=== PATIENT | male | born 1965 | race African-American/Black ===

== ENCOUNTER 2017-12-26 11:51 | Inpatient (IN) | payer OTHER ==
[2017-12-26 13:42] VITALS: BMI 28.0
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
[2017-12-26] MEDS ORDERED: chlordiazePOXIDE HCL 25 MG CAPSULE PO PRN (14:28)
[2017-12-26] MEDS ORDERED: LOPERAMIDE HCL 2 MG CAPSULE PO PRN (14:28)
[2017-12-26] MEDS ORDERED: MAGNESIUM CITRATE 300 ML BOTTLE PO PRN (14:28)
[2017-12-26] MEDS ORDERED: MENTHOL/PHENOL 1 EACH UD MM PRN (14:28)
[2017-12-26] MEDS ORDERED: guaiFENesin/D-METHORPHAN HB 10 ML UNIT-DOSE CUPS PO PRN (14:28)
[2017-12-26] MEDS ORDERED: P-EPHED 60MG/TRIPROLIDI 2.5MG TABLET PO PRN (14:28)
[2017-12-26] MEDS ORDERED: MAG HYDROX/AL HYDROX/SIMETH 30 ML UNIT-DOSE CUP PO PRN (14:28)
[2017-12-26] MEDS ORDERED: ACETAMINOPHEN 325 MG TABLET (FP) PO PRN (14:28)
[2017-12-26] MEDS ORDERED: MAGNESIUM HYDROX 2400MG/30ML ORAL SUSPENSION 30 ML CUP PO PRN (14:28)
[2017-12-26] MEDS ORDERED: METHADONE HCL 10 MG TABLET (FOR DETOX USE ONLY) PO ONE ×2 (15:30→23:00)
--- NOTE | 2017-12-26 17:21 | PN ---
S Progress Note Note: Psychiatric Nurse Practitioner: [employer] approached patient for a psychiatric consultation. Pt. refused. Stated, " i don't need a psych evaluation. I'm good. thanks."
[2017-12-26] MEDS: HYDROCHLOROTHIAZIDE 25 MG TABLET (FP) PO SCH (17:42)
[2017-12-26] MEDS ORDERED: PETROLATUM, WHITE 30 GM TUBE TP SCH (18:00)
[2017-12-26] MEDS: RANITIDINE HCL 150 MG TABLET (FP) PO SCH (22:27)
[2017-12-26] MEDS: CLINDAMYCIN HCL 150 MG CAPSULE (FP) PO SCH ×2 (22:28)
[2017-12-26] MEDS: chlordiazePOXIDE HCL 25 MG CAPSULE PO SCH (22:28)
[2017-12-26] MEDS: THIAMINE HCL 100 MG TABLET (FP) PO SCH (22:30)
[2017-12-26 23:49] LABS: URINE APPEARANCE SLCLOUDY; URINE BILIRUBIN NEGATIVE (NEGATIVE); URINE BLOOD NEGATIVE (NEGATIVE); URINE COLOR AMBER; URINE GLUCOSE (UA) 1+ (NEGATIVE); URINE KETONE 1+ (NEGATIVE); URINE LEUK ESTERASE NEGATIVE (NEGATIVE); URINE NITRITE NEGATIVE (NEGATIVE); URINE UROBILINOGEN 4.0 E.U/dl mg/dL (0.2-1.0)
[2017-12-26 23:50] LABS: URINE PROTEIN 1+ (NEGATIVE)
[2017-12-26 23:52] LABS: CALCIUM OXALATE CRYSTALS RARE /hpf (NONE SEEN); EPI CELLS RARE /HPF (FEW); URINE MUCUS MANY
[2017-12-27] MEDS: chlordiazePOXIDE HCL 25 MG CAPSULE PO SCH ×4 (05:29→22:43)
[2017-12-27] MEDS: CLINDAMYCIN HCL 150 MG CAPSULE (FP) PO SCH ×3 (05:30→22:43)
[2017-12-27] MEDS ORDERED: METHADONE HCL 10 MG TABLET (FOR DETOX USE ONLY) PO SCH (10:00)
[2017-12-27] MEDS: HYDROCHLOROTHIAZIDE 25 MG TABLET (FP) PO SCH (10:13)
[2017-12-27] MEDS: PRENATAL VITAMINS W/ FOLIC ACID TABLET (FP) PO SCH (10:13)
[2017-12-27] MEDS: RANITIDINE HCL 150 MG TABLET (FP) PO SCH ×2 (10:13→22:43)
[2017-12-27] MEDS: ASPIRIN COATED 81 MG TABLET.EC PO SCH (10:13)
[2017-12-27] MEDS: VITAMINS A AND D TOPICAL OINTMENT 60 GM TUBE TP SCH (10:15)
[2017-12-27 10:21] LABS: HEMATOCRIT 50.2 % (35.4-49); HEMOGLOBIN 16.5 GM/dL (11.7-16.9); MCH 32.7 pg (25.7-33.7); MCHC 32.9 g/dl (32.0-35.9); MEAN CELL VOLUME 99.5 fl (80-96); MEAN PLT VOLUME 9.2 fl (7.5-11.1); RBC 5.04 M/mm3 (4.00-5.60); RDW 13.5 % (11.9-15.9)
[2017-12-27] MEDS ORDERED: BACITRACIN 0.9 GM PACKET TP ONE (10:21)
--- NOTE | 2017-12-27 10:28 | PN ---
[facility] CIWA - CIWA Score Nausea/Vomitin-Mild Nausea/No Vomiting Muscle Tremors: 4-Moderate,w/Arms Extend Anxiety: 4-Mod. Anxious/Guarded Agitation: 4-Moderately Restless Paroxysmal Sweats: 1-Minimal Palms Moist Orientation: 0-Oriented Tacttile Disturbances: 0-None Auditory Disturbances: 0-None Visual Disturbances: 0-None Headache: 0-None Present CIWA-Ar Total Score: 14 S COWS - Scale Resting Pulse: 0= [place] 80 or Below Sweatin= Chills/Flushing Restless Observation: 3= Extraneous Movement Pupil Size: 0= Normal to Room Light Bone or Joint Aches: 2= Severe Diffuse Aches Runny Nose/ Eye Tearin= Runny Nose/Eyes GI Upset > 30mins: 2= Nausea/Diarrhea Tremor Observation of Outstretched Hands: 2= Slight Tremor Visible Yawning Observation: 0= None Anxiety or Irritability: 2=Irritable/Anxious Goose Flesh Skin: 0=Smooth Skin COWS Score: 14 [facility] Progress Note (SOAP) Subjective: joint aches tremor anxiety sweat irritable agitation Objective: 12/27/17 10:26 Vital Signs Temperature 96.4 F L 12/27/17 06:00 Pulse Rate 61 12/27/17 06:00 Respiratory Rate 18 12/27/17 06:00 Blood Pressure 141/91 12/27/17 06:00 O2 Sat by Pulse Oximetry (%) Laboratory Last Values WBC 5.0 K/mm3 (4.0-10.0) D 12/27/17 06:00 RBC 5.04 M/mm3 (4.00-5.60) 12/27/17 06:00 Hgb 16.5 GM/dL (11.7-16.9) 12/27/17 06:00 Hct 50.2 % (35.4-49) H 12/27/17 06:00 MCV 99.5 fl (80-96) H 12/27/17 06:00 MCH 32.7 pg (25.7-33.7) 12/27/17 06:00 MCHC 32.9 g/dl (32.0-35.9) 12/27/17 06:00 RDW 13.5 % (11.9-15.9) 12/27/17 06:00 MPV 9.2 fl (7.5-11.1) 12/27/17 06:00 Urine Color Ilsa 12/26/17 23:25 Urine Appearance Slcloudy 12/26/17 23:25 Urine pH 6.0 (5.0-8.0) 12/26/17 23:25 Ur Specific [place] 1.029 (1.001-1.035) 12/26/17 23:25 Urine Protein 1+ (NEGATIVE) H 12/26/17 23:25 Urine Glucose (UA) 1+ (NEGATIVE) H 12/26/17 23:25 Urine Ketones 1+ (NEGATIVE) H 12/26/17 23:25 Urine Blood Negative (NEGATIVE) 12/26/17 23:25 Urine Nitrite Negative (NEGATIVE) 12/26/17 23:25 Urine Bilirubin Negative (NEGATIVE) 12/26/17 23:25 Urine Urobilinogen 4.0 e.u/dl mg/dL (0.2-1.0) 12/26/17 23:25 Ur Leukocyte Esterase Negative (NEGATIVE) 12/26/17 23:25 Urine WBC (Auto) 3 /hpf (3-5) 12/26/17 23:25 Urine RBC (Auto) 3 /hpf (0-3) 12/26/17 23:25 Ur Epithelial Cells Rare /HPF (FEW) 12/26/17 23:25 Calcium Oxalate Crystal Rare /hpf (NONE SEEN) 12/26/17 23:25 Urine Mucus Many 12/26/17 23:25 lab noted Assessment: 12/27/17 10:27 withdrawal sx Plan: continue detox
[2017-12-27 10:35] LABS: ALBUMIN 3.9 g/dl (3.4-5.0); ANION GAP 6 (8-16); BILIRUBIN,TOTAL 0.8 mg/dL (0.2-1.0); BLOOD UREA NITROGEN 20 mg/dL (7-18); CALCIUM 8.6 mg/dL (8.5-10.1); CHLORIDE 108 mmol/L (98-107); CO2 29 mmol/L (21-32); CREATININE 0.9 mg/dL (0.7-1.3); GLUCOSE,RANDOM 88 mg/dL (74-106); SGOT/AST 170 U/L (15-37); SGPT/ALT 104 U/L (12-78); SODIUM 143 mmol/L (136-145); TOT PROT 6.9 g/dl (6.4-8.2)
[2017-12-27 10:36] LABS: ALK PHOS 65 U/L (45-117)
--- NOTE | 2017-12-27 11:05 | CONSULT ---
[facility] Psychiatric Consult - Data Date of interview: 12/27/17 Admission source: [facility] Identifying data: This is 52 years old male with unknown psychiatric hospitalization hbistory, intoxicated with Alcoho, Opiopids and Cocaine Substance Abuse History: - Smoking Cessation. Smoking history: Former smoker. Have you smoked in the past 12 months: No. If you are a former smoker, when did you quit?: 2 YRS AGO. Hx Chewing Tobacco Use: No. Initiated information on smoking cessation: No. - Substance & Tx. History. Hx Alcohol Use: Yes. Hx Substance Use: Yes. Substance Use Type: Alcohol, Cocaine, Opiates. Hx Substance Use Treatment: Yes (2012). - Substances Abused. Alcohol. Route: Oral. Frequency: Daily. Oxycontin. Route: Oral. Frequency: Daily Medical History: GERD, HTN Psychiatric History: Denies, as per computer history of depression. Patient is not cooperative, minimizing past psychiatric history Physical/Sexual Abuse/Trauma History: Denies Additional Comment: Observation. Detox Unit Care Protocol Mental Status Exam - Mental Status Exam Alert and Oriented to: Person Cognitive Function: Fair Patient Appearance: Unkempt Mood: Angry, Anxious Affect: Flat Patient Behavior: Guarded Speech Pattern: Appropriate Voice Loudness: Mildly Loud Thought Process: Goal Oriented Thought Disorder: Being Controlled Hallucinations: Denies Suicidal Ideation: Denies Homicidal Ideation: Denies Insight/Judgement: Fair Sleep: Difficulty falling asleep Appetite: Fair Muscle strength/Tone: Normal Gait/Station: Normal Additional Comments: Observation. Detox Unit Care Protocol Psychiatric Findings - Problem List ([place] 1, 2,3) (1) Opioid dependence with withdrawal Current Visit: Yes Status: Acute (2) Depression (emotion) Current Visit: Yes Status: Suspected Qualifiers: Depression Type: dysthymia Qualified Code(s): F34.1 - Dysthymic disorder (3) Alcohol dependence Current Visit: No Status: Acute (4) Cocaine dependence Current Visit: No Status: Acute (5) Opioid dependence Current Visit: No Status: Acute (6) Sedative dependence Current Visit: No Status: Acute (7) Alcohol abuse Current Visit: Yes Status: Acute (8) Cocaine abuse Current Visit: Yes Status: Acute - Initial Treatment Plan Initial Treatment Plan: Observation. Detox Unit Care Protocol
--- NOTE | 2017-12-27 11:05 | EKG ---
Test Reason : Blood Pressure : / mmHG Vent. Rate : 084 BPM Atrial Rate : 084 BPM P-R Int : 150 ms QRS Dur : 100 ms QT Int : 354 ms P-R-T Axes : 078 065 050 degrees QTc Int : 418 ms NORMAL SINUS RHYTHM POSSIBLE LEFT ATRIAL ENLARGEMENT BORDERLINE ECG NO PREVIOUS ECGS AVAILABLE Confirmed by TIMOTHY REAVES, MADIE ([id number]) on 12/27/2017 11:05:29 AM Referred By: Confirmed By:MADIE AGUIRRE MD
[2017-12-27] MEDS ORDERED: FLU VACCINE QUAD 60 MCG/0.5 ML (MDV 17-18) IM ONE (12:00)
[2017-12-27] MEDS: THIAMINE HCL 100 MG TABLET (FP) PO SCH (22:43)
[2017-12-28] MEDS: CLINDAMYCIN HCL 150 MG CAPSULE (FP) PO SCH ×3 (05:21→22:39)
[2017-12-28] MEDS: chlordiazePOXIDE HCL 25 MG CAPSULE PO SCH ×3 (05:21→17:30)
[2017-12-28] MEDS: BACITRACIN 0.9 GM PACKET TP SCH (10:22)
[2017-12-28] MEDS: HYDROCHLOROTHIAZIDE 25 MG TABLET (FP) PO SCH (10:23)
[2017-12-28] MEDS: PRENATAL VITAMINS W/ FOLIC ACID TABLET (FP) PO SCH (10:23)
[2017-12-28] MEDS: ASPIRIN COATED 81 MG TABLET.EC PO SCH (10:23)
[2017-12-28] MEDS: VITAMINS A AND D TOPICAL OINTMENT 60 GM TUBE TP SCH (10:23)
[2017-12-28] MEDS: RANITIDINE HCL 150 MG TABLET (FP) PO SCH ×2 (10:24→22:39)
[2017-12-28] MEDS: METHADONE HCL 5 MG TABLET (FOR DETOX USE ONLY) PO SCH (10:25)
--- NOTE | 2017-12-28 13:21 | PN ---
S CIWA - CIWA Score Nausea/Vomitin Muscle Tremors: 3 Anxiety: 3 Agitation: 3 Paroxysmal Sweats: 1-Minimal Palms Moist Orientation: 0-Oriented Tacttile Disturbances: 1-Very Mild Itch/Numbness Auditory Disturbances: 1-Very Mild Visual Disturbances: 0-None Headache: 2-Mild CIWA-Ar Total Score: 17 [facility] COWS - Scale Resting Pulse: 0= [place] 80 or Below Sweatin= Chills/Flushing Restless Observation: 3= Extraneous Movement Pupil Size: 1= Pupils >than Normal Bone or Joint Aches: 2= Severe Diffuse Aches Runny Nose/ Eye Tearin= Runny Nose/Eyes GI Upset > 30mins: 2= Nausea/Diarrhea Tremor Observation of Outstretched Hands: 2= Slight Tremor Visible Yawning Observation: 1= 1-2x During Session Anxiety or Irritability: 2=Irritable/Anxious Goose Flesh Skin: 0=Smooth Skin COWS Score: 16 S Progress Note (SOAP) Subjective: ALERT,IRRITABLE,ANXIOUS,INTERRUPTED SLEEP,PIN IN THE BODY AND BACK Objective: 12/28/17 13:19 Vital Signs Temperature 97.7 F 12/28/17 10:11 Pulse Rate 78 12/28/17 10:11 Respiratory Rate 18 12/28/17 10:11 Blood Pressure 140/78 12/28/17 10:11 O2 Sat by Pulse Oximetry (%) EKG NSR Laboratory Last Values WBC 5.0 K/mm3 (4.0-10.0) D 12/27/17 06:00 RBC 5.04 M/mm3 (4.00-5.60) 12/27/17 06:00 Hgb 16.5 GM/dL (11.7-16.9) 12/27/17 06:00 Hct 50.2 % (35.4-49) H 12/27/17 06:00 MCV 99.5 fl (80-96) H 12/27/17 06:00 MCH 32.7 pg (25.7-33.7) 12/27/17 06:00 MCHC 32.9 g/dl (32.0-35.9) 12/27/17 06:00 RDW 13.5 % (11.9-15.9) 12/27/17 06:00 Plt Count No Result Required. 12/27/17 06:00 MPV 9.2 fl (7.5-11.1) 12/27/17 06:00 Platelet Comment Mod plt clumping 12/27/17 06:00 Sodium 143 mmol/L (136-145) 12/27/17 06:00 Potassium 4.0 mmol/L (3.5-5.1) 12/27/17 06:00 Chloride 108 mmol/L (98-107) H 12/27/17 06:00 Carbon Dioxide 29 mmol/L (21-32) 12/27/17 06:00 Anion Gap 6 (8-16) L 12/27/17 06:00 BUN 20 mg/dL (7-18) H 12/27/17 06:00 Creatinine 0.9 mg/dL (0.7-1.3) 12/27/17 06:00 Creat Clearance w eGFR > 60 (>60) 12/27/17 06:00 Random Glucose 88 mg/dL (74-106) D 12/27/17 06:00 Calcium 8.6 mg/dL (8.5-10.1) 12/27/17 06:00 Total Bilirubin 0.8 mg/dL (0.2-1.0) 12/27/17 06:00 AST 170 U/L (15-37) H D 12/27/17 06:00 ALT 104 U/L (12-78) H D 12/27/17 06:00 Alkaline Phosphatase 65 U/L (45-117) D 12/27/17 06:00 Total Protein 6.9 g/dl (6.4-8.2) 12/27/17 06:00 Albumin 3.9 g/dl (3.4-5.0) 12/27/17 06:00 Urine Color Ilsa 12/26/17 23:25 Urine Appearance Slcloudy 12/26/17 23:25 Urine pH 6.0 (5.0-8.0) 12/26/17 23:25 Ur Specific [place] 1.029 (1.001-1.035) 12/26/17 23:25 Urine Protein 1+ (NEGATIVE) H 12/26/17 23:25 Urine Glucose (UA) 1+ (NEGATIVE) H 12/26/17 23:25 Urine Ketones 1+ (NEGATIVE) H 12/26/17 23:25 Urine Blood Negative (NEGATIVE) 12/26/17 23:25 Urine Nitrite Negative (NEGATIVE) 12/26/17 23:25 Urine Bilirubin Negative (NEGATIVE) 12/26/17 23:25 Urine Urobilinogen 4.0 e.u/dl mg/dL (0.2-1.0) 12/26/17 23:25 Ur Leukocyte Esterase Negative (NEGATIVE) 12/26/17 23:25 Urine WBC (Auto) 3 /hpf (3-5) 12/26/17 23:25 Urine RBC (Auto) 3 /hpf (0-3) 12/26/17 23:25 Ur Epithelial Cells Rare /HPF (FEW) 12/26/17 23:25 Calcium Oxalate Crystal Rare /hpf (NONE SEEN) 12/26/17 23:25 Urine Mucus Many 12/26/17 23:25 RPR Titer Nonreactive (NONREACTIVE) 12/27/17 06:00 Assessment: 12/28/17 13:20 WITHDRAWAL SYMPTOM Plan: CONTINUE DETOX,D/C TYLENOL FOR ELEVATION OF ALT,AST
[2017-12-28] MEDS: THIAMINE HCL 100 MG TABLET (FP) PO SCH (22:39)
[2017-12-28] MEDS: chlordiazePOXIDE 5 MG CAPSULE PO SCH (22:39)
[2017-12-29] MEDS: chlordiazePOXIDE 5 MG CAPSULE PO SCH ×3 (05:57→17:43)
[2017-12-29] MEDS: CLINDAMYCIN HCL 150 MG CAPSULE (FP) PO SCH ×3 (05:57→22:20)
[2017-12-29] MEDS: BACITRACIN 0.9 GM PACKET TP SCH (10:12)
[2017-12-29] MEDS: PRENATAL VITAMINS W/ FOLIC ACID TABLET (FP) PO SCH (10:12)
[2017-12-29] MEDS: METHADONE HCL 5 MG TABLET (FOR DETOX USE ONLY) PO SCH (10:12)
[2017-12-29] MEDS: HYDROCHLOROTHIAZIDE 25 MG TABLET (FP) PO SCH (10:12)
[2017-12-29] MEDS: ASPIRIN COATED 81 MG TABLET.EC PO SCH (10:12)
[2017-12-29] MEDS: VITAMINS A AND D TOPICAL OINTMENT 60 GM TUBE TP SCH (10:13)
[2017-12-29] MEDS: RANITIDINE HCL 150 MG TABLET (FP) PO SCH ×2 (10:13→22:21)
[2017-12-29] MEDS: TOLNAFTATE 1% CREAM 15 GM TUBE TP SCH ×2 (11:30→22:20)
--- NOTE | 2017-12-29 11:39 | PN ---
S Progress Note (SOAP) Subjective: ALERT,IRRITABLE,ANXIOUS,INTERRUPTED SLEEP,PAIN IN THE BODY EXTREMITIES Objective: 12/29/17 11:37 Vital Signs Temperature 96.6 F L 12/29/17 10:09 Pulse Rate 69 12/29/17 10:09 Respiratory Rate 20 12/29/17 10:09 Blood Pressure 121/75 12/29/17 10:09 O2 Sat by Pulse Oximetry (%) Assessment: 12/29/17 11:38 WITHDRAWAL SYMPTOM Plan: CONTINUE DETOX,TINACTIN CREAM FOR TINEA PEDIS
[2017-12-29] MEDS: chlordiazePOXIDE HCL 10 MG CAPSULE PO SCH (22:20)
[2017-12-29] MEDS: THIAMINE HCL 100 MG TABLET (FP) PO SCH (22:20)
[2017-12-30] MEDS: CLINDAMYCIN HCL 150 MG CAPSULE (FP) PO SCH ×3 (05:14→22:20)
[2017-12-30] MEDS: chlordiazePOXIDE HCL 10 MG CAPSULE PO SCH ×3 (05:14→21:10)
--- NOTE | 2017-12-30 09:55 | PN ---
S Progress Note (SOAP) Subjective: reports feeling better, less anxiety, no tremor, denies pain look forward to aftercare for recovery Objective: 12/30/17 09:54 Vital Signs Temperature 96.4 F L 12/30/17 06:26 Pulse Rate 68 12/30/17 06:26 Respiratory Rate 18 12/30/17 06:26 Blood Pressure 121/51 12/30/17 06:26 O2 Sat by Pulse Oximetry (%) Laboratory Last Values WBC 5.0 K/mm3 (4.0-10.0) D 12/27/17 06:00 RBC 5.04 M/mm3 (4.00-5.60) 12/27/17 06:00 Hgb 16.5 GM/dL (11.7-16.9) 12/27/17 06:00 Hct 50.2 % (35.4-49) H 12/27/17 06:00 MCV 99.5 fl (80-96) H 12/27/17 06:00 MCH 32.7 pg (25.7-33.7) 12/27/17 06:00 MCHC 32.9 g/dl (32.0-35.9) 12/27/17 06:00 RDW 13.5 % (11.9-15.9) 12/27/17 06:00 Plt Count No Result Required. 12/27/17 06:00 MPV 9.2 fl (7.5-11.1) 12/27/17 06:00 Platelet Comment Mod plt clumping 12/27/17 06:00 Sodium 143 mmol/L (136-145) 12/27/17 06:00 Potassium 4.0 mmol/L (3.5-5.1) 12/27/17 06:00 Chloride 108 mmol/L (98-107) H 12/27/17 06:00 Carbon Dioxide 29 mmol/L (21-32) 12/27/17 06:00 Anion Gap 6 (8-16) L 12/27/17 06:00 BUN 20 mg/dL (7-18) H 12/27/17 06:00 Creatinine 0.9 mg/dL (0.7-1.3) 12/27/17 06:00 Creat Clearance w eGFR > 60 (>60) 12/27/17 06:00 Random Glucose 88 mg/dL (74-106) D 12/27/17 06:00 Calcium 8.6 mg/dL (8.5-10.1) 12/27/17 06:00 Total Bilirubin 0.8 mg/dL (0.2-1.0) 12/27/17 06:00 AST 170 U/L (15-37) H D 12/27/17 06:00 ALT 104 U/L (12-78) H D 12/27/17 06:00 Alkaline Phosphatase 65 U/L (45-117) D 12/27/17 06:00 Total Protein 6.9 g/dl (6.4-8.2) 12/27/17 06:00 Albumin 3.9 g/dl (3.4-5.0) 12/27/17 06:00 Urine Color Ilsa 12/26/17 23:25 Urine Appearance Slcloudy 12/26/17 23:25 Urine pH 6.0 (5.0-8.0) 12/26/17 23:25 Ur Specific [place] 1.029 (1.001-1.035) 12/26/17 23:25 Urine Protein 1+ (NEGATIVE) H 12/26/17 23:25 Urine Glucose (UA) 1+ (NEGATIVE) H 12/26/17 23:25 Urine Ketones 1+ (NEGATIVE) H 12/26/17 23:25 Urine Blood Negative (NEGATIVE) 12/26/17 23:25 Urine Nitrite Negative (NEGATIVE) 12/26/17 23:25 Urine Bilirubin Negative (NEGATIVE) 12/26/17 23:25 Urine Urobilinogen 4.0 e.u/dl mg/dL (0.2-1.0) 12/26/17 23:25 Ur Leukocyte Esterase Negative (NEGATIVE) 12/26/17 23:25 Urine WBC (Auto) 3 /hpf (3-5) 12/26/17 23:25 Urine RBC (Auto) 3 /hpf (0-3) 12/26/17 23:25 Ur Epithelial Cells Rare /HPF (FEW) 12/26/17 23:25 Calcium Oxalate Crystal Rare /hpf (NONE SEEN) 12/26/17 23:25 Urine Mucus Many 12/26/17 23:25 RPR Titer Nonreactive (NONREACTIVE) 12/27/17 06:00 lab noted Assessment: 12/30/17 09:55 mild withdrawal sx Plan: continue detox
[2017-12-30] MEDS ORDERED: METHADONE HCL 10 MG TABLET (FOR DETOX USE ONLY) PO SCH (10:00)
[2017-12-30] MEDS: VITAMINS A AND D TOPICAL OINTMENT 60 GM TUBE TP SCH (10:10)
[2017-12-30] MEDS: PRENATAL VITAMINS W/ FOLIC ACID TABLET (FP) PO SCH (10:11)
[2017-12-30] MEDS: BACITRACIN 0.9 GM PACKET TP SCH (10:11)
[2017-12-30] MEDS: HYDROCHLOROTHIAZIDE 25 MG TABLET (FP) PO SCH (10:11)
[2017-12-30] MEDS: ASPIRIN COATED 81 MG TABLET.EC PO SCH (10:11)
[2017-12-30] MEDS: RANITIDINE HCL 150 MG TABLET (FP) PO SCH ×2 (10:11→22:21)
[2017-12-30] MEDS: TOLNAFTATE 1% CREAM 15 GM TUBE TP SCH ×2 (10:11→22:21)
[2017-12-30] MEDS: THIAMINE HCL 100 MG TABLET (FP) PO SCH (22:20)
[2017-12-31] MEDS ORDERED: METHADONE HCL 5 MG TABLET (FOR DETOX USE ONLY) PO SCH (06:00)
[2017-12-31] MEDS: CLINDAMYCIN HCL 150 MG CAPSULE (FP) PO SCH (07:00)
--- NOTE | 2017-12-31 08:53 | DS ---
[facility] Detox Discharge Summary Admission Date: 12/26/17 Discharge Date: 12/31/17 - History Present History: Opioid Dependence - Physical Exam Results Vital Signs: Vital Signs Temperature 97.9 F 12/31/17 06:18 Pulse Rate 66 12/31/17 06:18 Respiratory Rate 16 12/31/17 06:18 Blood Pressure 115/67 12/31/17 06:18 O2 Sat by Pulse Oximetry (%) Pertinent Admission Physical Exam Findings: withdrawal sx Vital Signs Temperature 97.9 F 12/31/17 06:18 Pulse Rate 66 12/31/17 06:18 Respiratory Rate 16 12/31/17 06:18 Blood Pressure 115/67 12/31/17 06:18 O2 Sat by Pulse Oximetry (%) Laboratory Last Values WBC 5.0 K/mm3 (4.0-10.0) D 12/27/17 06:00 RBC 5.04 M/mm3 (4.00-5.60) 12/27/17 06:00 Hgb 16.5 GM/dL (11.7-16.9) 12/27/17 06:00 Hct 50.2 % (35.4-49) H 12/27/17 06:00 MCV 99.5 fl (80-96) H 12/27/17 06:00 MCH 32.7 pg (25.7-33.7) 12/27/17 06:00 MCHC 32.9 g/dl (32.0-35.9) 12/27/17 06:00 RDW 13.5 % (11.9-15.9) 12/27/17 06:00 Plt Count No Result Required. 12/27/17 06:00 MPV 9.2 fl (7.5-11.1) 12/27/17 06:00 Platelet Comment Mod plt clumping 12/27/17 06:00 Sodium 143 mmol/L (136-145) 12/27/17 06:00 Potassium 4.0 mmol/L (3.5-5.1) 12/27/17 06:00 Chloride 108 mmol/L (98-107) H 12/27/17 06:00 Carbon Dioxide 29 mmol/L (21-32) 12/27/17 06:00 Anion Gap 6 (8-16) L 12/27/17 06:00 BUN 20 mg/dL (7-18) H 12/27/17 06:00 Creatinine 0.9 mg/dL (0.7-1.3) 12/27/17 06:00 Creat Clearance w eGFR > 60 (>60) 12/27/17 06:00 Random Glucose 88 mg/dL (74-106) D 12/27/17 06:00 Calcium 8.6 mg/dL (8.5-10.1) 12/27/17 06:00 Total Bilirubin 0.8 mg/dL (0.2-1.0) 12/27/17 06:00 AST 170 U/L (15-37) H D 12/27/17 06:00 ALT 104 U/L (12-78) H D 12/27/17 06:00 Alkaline Phosphatase 65 U/L (45-117) D 12/27/17 06:00 Total Protein 6.9 g/dl (6.4-8.2) 12/27/17 06:00 Albumin 3.9 g/dl (3.4-5.0) 12/27/17 06:00 Urine Color Ilsa 12/26/17 23:25 Urine Appearance Slcloudy 12/26/17 23:25 Urine pH 6.0 (5.0-8.0) 12/26/17 23:25 Ur Specific [place] 1.029 (1.001-1.035) 12/26/17 23:25 Urine Protein 1+ (NEGATIVE) H 12/26/17 23:25 Urine Glucose (UA) 1+ (NEGATIVE) H 12/26/17 23:25 Urine Ketones 1+ (NEGATIVE) H 12/26/17 23:25 Urine Blood Negative (NEGATIVE) 12/26/17 23:25 Urine Nitrite Negative (NEGATIVE) 12/26/17 23:25 Urine Bilirubin Negative (NEGATIVE) 12/26/17 23:25 Urine Urobilinogen 4.0 e.u/dl mg/dL (0.2-1.0) 12/26/17 23:25 Ur Leukocyte Esterase Negative (NEGATIVE) 12/26/17 23:25 Urine WBC (Auto) 3 /hpf (3-5) 12/26/17 23:25 Urine RBC (Auto) 3 /hpf (0-3) 12/26/17 23:25 Ur Epithelial Cells Rare /HPF (FEW) 12/26/17 23:25 Calcium Oxalate Crystal Rare /hpf (NONE SEEN) 12/26/17 23:25 Urine Mucus Many 12/26/17 23:25 RPR Titer Nonreactive (NONREACTIVE) 12/27/17 06:00 lab noted - Treatment Hospital Course: Detox Protocol Followed, Detoxed Safely, Responded well, Discharged Condition Good, Rehab Referral Accepted Patient has Accepted a Rehab Referral to: as per counselor arranged - Medication Discharge Medications: Ambulatory Orders Aspirin [Aspirin EC] 81 mg PO DAILY 12/26/17 Clindamycin [Cleocin -] 150 mg PO Q8H 12/26/17 Hydrochlorothiazide 50 mg PO DAILY 12/26/17 - Diagnosis (1) Opioid dependence with withdrawal Current Visit: Yes Status: Acute (2) GERD (gastroesophageal reflux disease) Current Visit: Yes Status: Chronic Qualifiers: Esophagitis presence: without esophagitis Qualified Code(s): K21.9 - Gastro -esophageal reflux disease without esophagitis (3) Hypertension Current Visit: Yes Status: Chronic Qualifiers: Hypertension type: essential hypertension Qualified Code(s): I10 - Essential (primary) hypertension (4) Depression (emotion) Current Visit: Yes Status: Suspected Qualifiers: Depression Type: dysthymia Qualified Code(s): F34.1 - Dysthymic disorder - AMA Did Patient Leave Against Medical Advice: No
[2017-12-31] MEDS: PRENATAL VITAMINS W/ FOLIC ACID TABLET (FP) PO SCH (10:10)
[2017-12-31] MEDS: BACITRACIN 0.9 GM PACKET TP SCH (10:10)
[2017-12-31] MEDS: ASPIRIN COATED 81 MG TABLET.EC PO SCH (10:10)
[2017-12-31] MEDS: HYDROCHLOROTHIAZIDE 25 MG TABLET (FP) PO SCH (10:10)
[2017-12-31 10:11] VITALS: BP 144/79; PULSE 86; TEMP 97
[2017-12-31] MEDS: VITAMINS A AND D TOPICAL OINTMENT 60 GM TUBE TP SCH (10:11)
[2017-12-31] MEDS: RANITIDINE HCL 150 MG TABLET (FP) PO SCH (10:11)
[2017-12-31] MEDS: TOLNAFTATE 1% CREAM 15 GM TUBE TP SCH (10:11)
== END 2017-12-31 10:46 | disposition home or self-care (01) | DRG 773 ==
LOC: YASAS 11:51 → Y6N 15:22
PROVIDERS: ADMIT Internal Medicine; ATTEND Internal Medicine
PROC: HZ2ZZZZ Detoxification Services for Substance Abuse Treatment (ICD-10-PCS; principal; 2017-12-26)
DX: F11.23 Opioid dependence with withdrawal (principal); F14.20 Cocaine dependence, uncomplicated; F34.1 Dysthymic disorder; I10 Essential (primary) hypertension; K21.9 Gastro-esophageal reflux disease without esophagitis; E78.00 Pure hypercholesterolemia, unspecified; Z87.891 Personal history of nicotine dependence; Z86.69 Personal history of other diseases of the nervous system and sense organs; Z91.013 Allergy to seafood; Z88.8 Allergy status to other drugs, medicaments and biological substances; Z59.0 Homelessness
CPT/HCPCS: 36415; 80053; 81003; 81015; 85027; 86593; 90688; 93005; 93010